=== PATIENT | male | born 1995 | race Caucasian/White ===

== ENCOUNTER 2022-07-16 02:57 | Emergency (ER) | payer OTHER, SELFPAY ==
[2022-07-16 03:04] VITALS: BP 139/95; PULSE 84; RESP 18; TEMP 36.9; O2SAT 100; BMI 29.1
[2022-07-16 04:11] VITALS: BP 139/71; PULSE 78; RESP 18; O2SAT 98
--- NOTE | 2022-07-16 04:26 | ED_ITS ---
HPI - Extremity Injury (Upper) General Chief Complaint: General Medical Stated Complaint: cut on finger Time Seen by Provider: 07/16/22 03:42 Source: patient Mode of arrival: ambulatory Limitations: no limitations History of Present Illness HPI narrative: Debris patient cutting which he has got a cut at the tip of the left 3rd finger sparing the nail no other injury Related Data Allergies Allergy/AdvReac Type Severity Reaction Status Date / Time No Known Allergies Allergy Verified 10/31/21 11:08 Review of Systems Review of Systems: Yes all other systems are reviewed and are negative [facility] Past Medical History Medical History Chronic right shoulder pain Surgical History H/O left knee surgery Family History Family History Mother Diabetes mellitus Father Diabetes mellitus Brother Diabetes mellitus Maternal Aunt Breast cancer, Onset Age: 52 Social History Social History Housing: Apartment Patient Tobacco Use Status: Former Tobacco user Tobacco use type: Cigarette e-Cigarette/Vaping Use: Never Used Second Hand Smoke Exposure: No Advance Directives: No service: No Current occupational status: employed Physical Exam Vital Signs: Vital Signs: Last Vital Signs Temp 98.5 F 07/16/22 03:04 Pulse 78 07/16/22 04:11 Resp 18 07/16/22 04:11 BP 139/71 07/16/22 04:11 Pulse Ox 98 07/16/22 04:11 O2 Del Method 07/16/22 04:11 BMI result Body Mass Index 29.1 Extrem: Hand/finger images: 1. Superficial flap laceration at the tip of left 3rd finger Dermabond was applied with fair approximation Discharge Plan Discharge Clinical Impression: Laceration of finger of left hand Patient Disposition: Home, Self-Care Instructions: Finger Laceration (ED) Additional Instructions: Local care as advised
== END 2022-07-16 04:32 | disposition home or self-care (01) ==
PROVIDERS: Emergency Provider Internal Medicine
DX: S61.213A Laceration without foreign body of left middle finger without damage to nail, initial encounter (principal); W26.0XXA Contact with knife, initial encounter; Y93.G1 Activity, food preparation and clean up; Y92.010 Kitchen of single-family (private) house as the place of occurrence of the external cause; Y99.9 Unspecified external cause status
CPT/HCPCS: 12001; 99282; 99283; 99284